=== PATIENT | male | born 1940 | race Caucasian/White ===

== ENCOUNTER 2024-01-06 11:37 | Observation (INO) | payer OTHER ==
[2024-01-06] MEDS ORDERED: MECLIZINE HCL 25 MG TABLET (FP) ONE (11:59)
[2024-01-06] MEDS: MECLIZINE HCL 12.5 MG TABLET PO ONE (12:10)
[2024-01-06 12:32] LABS: HEMATOCRIT 41.6 % (35.4-49); HEMOGLOBIN 14.1 G/dL (11.7-16.9); MCH 32.8 pg (25.7-33.7); MCHC 33.9 g/dl (32.0-35.9); MEAN CELL VOLUME 96.7 fl (80-96); MEAN PLT VOLUME 10.1 fl (7.5-11.1); PLATELET COUNT 160.8 10^3/uL (134-434); RDW 12.7 % (11.9-15.9); WHITE BLOOD COUNT 9.4 10^3/uL (4.0-10.8)
[2024-01-06 12:35] LABS: PLATELET ESTIMATE ADEQUATE
[2024-01-06 12:40] LABS: ALBUMIN 4.2 g/dl (3.4-5.0); BILIRUBIN,TOTAL 0.6 mg/dl (0.2-1); CALCIUM 9.9 mg/dl (8.5-10.1); CREATININE 1.3 mg/dl (0.6-1.3); MAGNESIUM 2.1 mg/dL (1.8-2.4); POTASSIUM 4.2 mmol/L (3.5-5.1)
[2024-01-06] MEDS ORDERED: ASPIRIN 81 MG CHEWABLE TABLETS ONE (14:02)
[2024-01-06] MEDS: ASPIRIN 81 MG CHEWABLE TABLETS PO ONE (14:14)
[2024-01-06 14:26] LABS: INR 1.32 (0.83-1.09); PROTHROMBIN TIME (PATIENT) 14.9 SEC (9.7-13.0)
[2024-01-06 14:28] LABS: ACTIVATED PTT 29.4 SECONDS (25.2-36.5)
[2024-01-06 14:44] LABS: CHOLESTEROL 116 mg/dL (50-200); HDL CHOLESTEROL 35 mg/dL (40-60)
[2024-01-06 14:45] LABS: LDL CHOLESTEROL (ONLY SJRH) 66 mg/dL (5-100)
[2024-01-06 16:09] VITALS: BMI 27.0
[2024-01-06] MEDS ORDERED: MECLIZINE HCL 12.5 MG TABLET PO PRN (16:18)
[2024-01-06] MEDS: ATORVASTATIN CA 40 MG TABLET (FP) PO SCH (21:13)
[2024-01-07 09:35] LABS: ALBUMIN 3.9 g/dl (3.4-5.0); BILIRUBIN,TOTAL 0.7 mg/dl (0.2-1); CALCIUM 9.3 mg/dl (8.5-10.1); CREATININE 1.2 mg/dl (0.6-1.3); MAGNESIUM 2.1 mg/dL (1.8-2.4); PHOSPHOROUS 4.3 (2.5-4.9); POTASSIUM 4.7 mmol/L (3.5-5.1); TOT PROT 6.6 g/dl (6.4-8.2)
[2024-01-07] MEDS: ASPIRIN 81 MG CHEWABLE TABLETS PO SCH (10:06)
[2024-01-07] MEDS: ENOXAPARIN NA (PORCINE) 40 MG/0.4 ML DISP.SYRIN SQ SCH (10:06)
[2024-01-07 10:49] LABS: BASO % 0.5 % (0-2.0); EOS % 2.1 % (0-4.5); HEMATOCRIT 39.9 % (35.4-49); HEMOGLOBIN 13.8 GM/dL (11.7-16.9); LYMPH % 17.8 % (8-40); MCH 33.1 pg (25.7-33.7); MCHC 34.7 g/dl (32.0-35.9); MEAN CELL VOLUME 95.4 fl (80-96); MEAN PLT VOLUME 9.4 fl (7.5-11.1); MONO % 10.2 % (3.8-10.2); NEUT % 69.4 % (42.8-82.8); PLATELET COUNT 151 10^3/uL (134-434); RBC 4.18 M/mm3 (4.00-5.60); RDW 12.7 % (11.9-15.9); WHITE BLOOD COUNT 8.2 K/mm3 (4.0-10.0)
[2024-01-08 01:58] VITALS: RESP 18
[2024-01-08 14:44] VITALS: BP 126/55; PULSE 65; TEMP 98.4
== END 2024-01-08 15:40 | disposition home or self-care (01) ==
LOC: FER 11:37 → UNDOADMOB 14:12 → FM/S 14:12 → INTOOBSV 14:12 → FM/S 01-08 13:02
PROVIDERS: ADMIT Internal Medicine; ATTEND Internal Medicine
PROC: 3E023GC Introduction of Other Therapeutic Substance into Muscle, Percutaneous Approach (ICD-10-PCS; principal; 2024-01-08)
DX: I63.9 Cerebral infarction, unspecified (principal); R42 Dizziness and giddiness; R26.2 Difficulty in walking, not elsewhere classified
CPT/HCPCS: 36415; 70450-TC; 70551-TC; 71045-TC-FY; 80053; 80061; 83036; 83735; 84100; 84484; 85025; 85027; 85610; 85730; 93005; 93306-TC; 93880-TC; 96372; 97116-GP; 97162-GP; 99285-25; G0378